=== PATIENT | male | born 1975 | race African-American/Black ===

== ENCOUNTER 2022-11-08 10:19 | Emergency (ER) | payer MEDICAID ==
[~2022-11-08] VITALS: Ht 172.7 cm; Wt 79.4 kg
--- NOTE | 2022-11-08 10:35 | NUR ---
seen and examined by
[2022-11-08] MEDS ORDERED: IBUPROFEN 600 MG TABLET PO ONE (10:45)
[2022-11-08] MEDS ORDERED: TDAP DIPH,PERTUSS,TET VAC/PF 0.5 ML DISP.SYRIN IM ONE ×2 (10:45→11:03)
[2022-11-08] MEDS ORDERED: ACETAMINOPHEN ES 500 MG TABLET PO ONE (10:45)
[2022-11-08] MEDS ORDERED: ACETAMINOPHEN 325 MG TABLET ONE (11:03)
[2022-11-08] MEDS ORDERED: IBUPROFEN 600 MG TABLET ONE (11:03)
[2022-11-08] MEDS ORDERED: SULF1TAB48 PO (12:13)
[2022-11-08] MEDS ORDERED: CEPH500C2 PO (12:13)
[2022-11-08] MEDS ORDERED: SULFAMETH/TRIMETH 800/160 MG TABLET PO ONE (12:15)
[2022-11-08] MEDS ORDERED: CEphaleXIN 500 MG CAPSULE PO ONE (12:15)
[2022-11-08] MEDS ORDERED: CEphaleXIN 500 MG CAPSULE ONE (12:28)
[2022-11-08] MEDS ORDERED: SULFAMETH/TRIMETH 800/160 MG TABLET ONE (12:28)
[2022-11-08 12:35] VITALS: BP 112/78
== END 2022-11-08 12:35 | disposition home or self-care (01) ==
LOC: ER 10:22
DX: L03.116 Cellulitis of left lower limb (principal)
CPT/HCPCS: 73630; 90715; A4663

== ENCOUNTER 2022-11-11 13:46 | Inpatient (IN) | payer MEDICAID ==
[~2022-11-11] VITALS: Ht 172.7 cm; Wt 79.4 kg
[~2022-11-11 13:46] MED LIST: CEPH500C2 PO; SULF1TAB48 PO
[2022-11-11] MEDS ORDERED: VANCOMYCIN IV 1,000 MG in IV DEXTROSE 5% 250 ML IV ONE (14:00)
[2022-11-11] MEDS ORDERED: PIPERACILLIN SODIUM/TAZOBACTAM 3.375 G in IV DEXTROSE 5% 50 ML IV ONE (14:00)
[2022-11-11] MEDS ORDERED: PIPERACILLIN/TAZOBACTAM/D5W 50 ML IV ONE (14:13)
[2022-11-11] MEDS ORDERED: VANCOMYCIN IV 200 ML ONE ×3 (14:13→21:08)
[2022-11-11 14:29] LABS: HEMATOCRIT 42.2 % (36.7-47.1); MEAN CORPUSCULAR HEMOGLOBIN 29.8 uug (23.8-33.4); MEAN CORPUSCULAR VOLUME 90.3 fL (73.0-96.2); PLATELET COUNT (AUTO) 279 K/uL (152-348)
[2022-11-11 14:58] LABS: CREATININE 1.3 mg/dL (0.6-1.3); POTASSIUM 3.9 mmol/L (3.5-5.1)
--- NOTE | 2022-11-11 15:10 | NUR ---
Pt admitted to Med/Surg Dx: Cellulitis Accepting: Bed assignment: Pending Plan of care discussed with pt by ER physician and nursing staff.
[2022-11-11] MEDS ORDERED: DEXTROSE 50% 50 ML DISP.SYRIN IV PRN (15:15)
[2022-11-11] MEDS ORDERED: ACETAMINOPHEN 325 MG TABLET PO PRN (15:15)
[2022-11-11] MEDS ORDERED: HYDROCODONE/APAP 5-325MG TABLET PO PRN (15:15)
[2022-11-11] MEDS ORDERED: INSULIN REGULAR, HUMAN 300 UNIT/3 ML VIAL SQ PRN ×2 (15:15)
[2022-11-11] MEDS ORDERED: MAGNESIUM HYDROXIDE 30 ML LIQUID UDC PO PRN (15:15)
[2022-11-11] MEDS ORDERED: REMEDY ESSENTIAL ZINC PASTE 113 GM TP PRN (15:15)
[2022-11-11] MEDS ORDERED: ONDANSETRON 4 MG/2 ML VIAL IV PRN (15:15)
[2022-11-11] MEDS ORDERED: MORPHINE SULFATE 2 MG/1 ML DISP.SYRIN IV PRN (15:15)
[2022-11-11] MEDS: BLOOD SUGAR DIAGNOSTIC 1 EACH STRIP VI SCH ×3 (16:55→21:24)
[2022-11-11] MEDS ORDERED: MORPHINE SULFATE 2 MG/1 ML DISP.SYRIN ONE (21:08)
[2022-11-11] MEDS: VANCOMYCIN IV 1,000 MG in IV DEXTROSE 5% 250 ML IV SCH (21:20)
[2022-11-11] MEDS ORDERED: PIPERACILLIN SODIUM/TAZOBACTAM 3.375 G in IV DEXTROSE 5% 100 ML IV SCH (22:00)
[2022-11-11] MEDS ORDERED: PIPERACILLIN SODIUM/TAZOBACTAM 3.375 G in IV DEXTROSE 5% 50 ML IV SCH (22:00)
--- NOTE | 2022-11-11 23:00 | NUR ---
PT A,A AND O X 4, RECEIVING IV VANCO TO #22 H/L. PT C/O L FT PAIN 7.
--- NOTE | 2022-11-12 00:10 | NUR ---
Patient does not wish to proceed with medical care recommended by Dr. HOLCOMB ). Patient given information related to possible complications, up to and including , which could occur as a result of leaving the hospital at this time. Patient verbalizes understanding of risks involved due to leaving against medical advice. Patient has signed AMA form. PT'S IV WAS D/C'D, SITE WAS C/D/I. PT AMB OUT WITH A L SIDED LIMP.
== END 2022-11-12 00:15 | disposition left against medical advice (07) | DRG 383 ==
LOC: ER 13:46 → TRANSITION 16:19
PROVIDERS: ADMIT Student in an Organized Health Care Education/Training Program; ATTEND Student in an Organized Health Care Education/Training Program
DX: L03.032 Cellulitis of left toe (principal); E11.9 Type 2 diabetes mellitus without complications; L02.612 Cutaneous abscess of left foot; Z53.29 Procedure and treatment not carried out because of patient's decision for other reasons
CPT/HCPCS: 36415; 83605; 85025; 87040; G0378; J2270; J2543; J3370; J7050